=== PATIENT | female | born 1970 | race Hispanic/Latino ===

== ENCOUNTER → 2020-09-03 | Outpatient (CLI) | payer OTHER ==
[~2020-09-03] MED LIST: IOHEXOL-350 75 ML VIAL IV ONE
== END | disposition home or self-care (01) ==
LOC: RAH 07:49
PROVIDERS: ATTEND Internal Medicine Gastroenterology
DX: K38.8 Other specified diseases of appendix (principal); J98.11 Atelectasis; R93.3 Abnormal findings on diagnostic imaging of other parts of digestive tract
CPT/HCPCS: 74178; Q9967